=== PATIENT | male | born 1965 | race Caucasian/White ===

== ENCOUNTER 2019-10-14 10:26 | Observation (INO) ==
[2019-10-14] MEDS ORDERED: 0.9 % Sodium Chloride 1,000 ML IVC ONE (11:09)
[2019-10-14 11:38] LABS: Basophils % 0.8 %; Eosinophils # 0.1 K/mcL (0.0-0.6); Eosinophils % 2.3 %; Hematocrit 48.6 % (37.5-50.1); Hemoglobin 16.3 g/dL (12.9-16.9); Immature Granulocytes % 0.3 % (0-4); Lymphocytes # 0.9 K/mcL (0.6-4.6); Lymphocytes % 25.8 %; Mean Corpuscular HGB Conc 33.5 g/dL (31.6-35.5); Mean Corpuscular Hemoglobin 28.8 pg (28.0-33.3); Monocytes # 0.4 K/mcL (0.0-1.3); Monocytes % 11.9 %; Neutrophils # 2.1 K/mcL (1.6-8.9); Platelet Count 186 K/mcL (140-400); Red Blood Count 5.65 M/mcL (4.19-5.50); Red Cell Distribution Width 12.8 % (11.5-14.5); Segmented Neutrophils % 58.9 %; White Blood Count 3.5 K/mcL (4.3-11.1)
[2019-10-14 11:46] LABS: INR 1.2; Prothrombin Time 14.1 Seconds (9.4-12.1)
[2019-10-14 11:56] LABS: Alanine Aminotransferase 229 Units/L (7-52); Albumin 4.1 g/dL (3.5-5.7); Albumin/Globulin Ratio 1.5 (1.1-2.2); Alkaline Phosphatase 230 Units/L (34-104); Aspartate Amino Transferase 95 Units/L (13-39); BUN/Creatinine Ratio 10 (6-26); Bilirubin,Total 5.9 mg/dL (0.3-1.0); Blood Urea Nitrogen 10 mg/dL (6-20); Calcium 9.1 mg/dL (8.6-10.3); Carbon Dioxide 27 mEq/L (23-29); Chloride 104 mEq/L (98-107); Globulin 2.7 g/dL (2.4-3.5); Glucose 122 mg/dL (70-105); Osmolality,Calculated 288 (280-300); Potassium 3.9 mEq/L (3.5-5.1); Sodium 139 mEq/L (136-145); Total Protein 6.8 g/dL (6.4-8.9); eGFR For African Americans > 60 (> 60); eGFR For Non-African Americans > 60 (> 60)
[2019-10-14] MEDS ORDERED: Mag Hydrox/Al Hydrox/Simeth 30 ML UDC PO PRN (12:26)
[2019-10-14] MEDS ORDERED: Naloxone 0.4 MG/ML INJ IVP PRN ×2 (12:26)
[2019-10-14] MEDS ORDERED: MOM Conc 10 ML UD.LIQ PO PRN (12:26)
[2019-10-14] MEDS ORDERED: Ondansetron ODT 4 MG TAB.RAPDIS SL PRN (12:26)
[2019-10-14] MEDS ORDERED: *HR* Midazolam HCl 2 MG/2 ML VIAL ONE (12:30)
[2019-10-14] MEDS ORDERED: Ondansetron 4 MG/2 ML VIAL ONE (12:30)
[2019-10-14] MEDS ORDERED: *HR* FentaNYL (PF) 100 MCG/2 ML VIAL ONE (12:30)
[2019-10-14] MEDS ORDERED: Dexamethasone 4 MG/ML VIAL ONE (12:30)
[2019-10-14] MEDS ORDERED: *HR* Succinylcholine 200 MG/10 ML VIAL IVP ONE (12:30)
[2019-10-14] MEDS ORDERED: Lidocaine -MPF 2% 2 ML VIAL ONE (12:30)
[2019-10-14] MEDS ORDERED: *HR* Propofol 200 MG/20 ML VIAL IVP ONE (12:30)
[2019-10-14] MEDS ORDERED: D5% in Water 1,000 ML IVC PRN (12:30)
[2019-10-14] MEDS ORDERED: *HR* Dextrose 50 % in Water (Syg) 50 ML SYRINGE IVP PRN (12:31)
[2019-10-14] MEDS ORDERED: Dextrose Gel 15 GM/37.5 ML TUBE PO PRN ×2 (12:31)
[2019-10-14] MEDS ORDERED: Ondansetron 4 MG/2 ML VIAL IVP ONE (13:38)
[2019-10-14] MEDS ORDERED: *HR* HYDROmorphone PF 0.5 MG/0.5 ML SYRINGE IVP PRN (13:38)
[2019-10-14] MEDS ORDERED: Indomethacin 50 MG SUPP.RECT RC ONE (14:00)
[2019-10-14] MEDS ORDERED: Ringers Solution, Lactated 1,000 ML IVC SCH (14:15)
[2019-10-14] MEDS: Insulin LISPRO 300 UNITS/3 ML VIAL SQ SCH (16:35)
[2019-10-14] MEDS ORDERED: Insulin LISPRO 300 UNITS/3 ML VIAL SQ SCH ×2 (18:00→21:00)
[2019-10-15 05:03] LABS: Hematocrit 42.2 % (37.5-50.1); Hemoglobin 14.1 g/dL (12.9-16.9); Mean Corpuscular HGB Conc 33.4 g/dL (31.6-35.5); Mean Corpuscular Hemoglobin 28.4 pg (28.0-33.3); Mean Corpuscular Volume 84.9 fL (83.0-100.0); Mean Platelet Volume 10.3 fL (9.4-12.4); Platelet Count 176 K/mcL (140-400); Red Blood Count 4.97 M/mcL (4.19-5.50); Red Cell Distribution Width 12.6 % (11.5-14.5); White Blood Count 5.3 K/mcL (4.3-11.1)
[2019-10-15 05:23] LABS: Alanine Aminotransferase 158 Units/L (7-52); Albumin 3.6 g/dL (3.5-5.7); Albumin/Globulin Ratio 1.5 (1.1-2.2); Alkaline Phosphatase 205 Units/L (34-104); Aspartate Amino Transferase 52 Units/L (13-39); BUN/Creatinine Ratio 14 (6-26); Bilirubin,Total 3.1 mg/dL (0.3-1.0); Blood Urea Nitrogen 12 mg/dL (6-20); Calcium 8.9 mg/dL (8.6-10.3); Carbon Dioxide 22 mEq/L (23-29); Chloride 105 mEq/L (98-107); Globulin 2.4 g/dL (2.4-3.5); Glucose 120 mg/dL (70-105); Magnesium 1.9 mg/dL (1.6-2.6); Osmolality,Calculated 287 (280-300); Potassium 4.3 mEq/L (3.5-5.1); Sodium 138 mEq/L (136-145); eGFR For African Americans > 60 (> 60); eGFR For Non-African Americans > 60 (> 60)
[2019-10-15] MEDS ORDERED: *HR* FentaNYL (PF) 100 MCG/2 ML VIAL ONE (07:54)
[2019-10-15] MEDS ORDERED: Ondansetron 4 MG/2 ML VIAL IVP ONE (07:55)
[2019-10-15] MEDS ORDERED: *HR* Propofol 200 MG/20 ML VIAL IVP ONE (07:55)
[2019-10-15] MEDS ORDERED: *HR* OxyCODONE Immed Rel 5 MG TABLET PO PRN (07:55)
[2019-10-15] MEDS ORDERED: Morphine Sulfate 2 MG/ML SYRINGE IVP PRN (07:55)
[2019-10-15] MEDS: Insulin LISPRO 300 UNITS/3 ML VIAL SQ SCH ×2 (07:58→17:08)
[2019-10-15] MEDS ORDERED: Dexamethasone 4 MG/ML VIAL ONE (07:59)
[2019-10-15] MEDS ORDERED: *HR* Succinylcholine 200 MG/10 ML VIAL IVP ONE (07:59)
[2019-10-15] MEDS ORDERED: *HR* Rocuronium Bromide 50 MG/5 ML VIAL ONE (07:59)
[2019-10-15] MEDS ORDERED: Lidocaine -MPF 2% 2 ML VIAL ONE (07:59)
[2019-10-15] MEDS ORDERED: Ondansetron 4 MG/2 ML VIAL ONE ×2 (07:59→09:45)
[2019-10-15] MEDS ORDERED: CefOXitin 2,000 MG VIAL ONE (08:48)
[2019-10-15] MEDS ORDERED: cefOXitin 2,000 MG in Water for inj. (sterile) 20 ML IVP ONE (08:49)
[2019-10-15] MEDS ORDERED: *HR* HYDROMORPHONE 2 MG/ML VIAL ONE (09:08)
[2019-10-15] MEDS ORDERED: Ketorolac 30 MG/ML VIAL ONE (09:45)
[2019-10-15] MEDS ORDERED: Neostigmine Methylsulfate 3 MG/3 ML SYRINGE ONE (09:45)
[2019-10-15] MEDS: *HR* Promethazine 25 MG/ML VIAL IVP PRN ×2 (10:54→11:02)
[2019-10-15] MEDS ORDERED: D5% in Water 1,000 ML IVC PRN (11:33)
[2019-10-15] MEDS ORDERED: MOM Conc 10 ML UD.LIQ PO PRN (11:33)
[2019-10-15] MEDS ORDERED: Mag Hydrox/Al Hydrox/Simeth 30 ML UDC PO PRN (11:33)
[2019-10-15] MEDS ORDERED: Ondansetron ODT 4 MG TAB.RAPDIS SL PRN (11:33)
[2019-10-15] MEDS ORDERED: Dextrose Gel 15 GM/37.5 ML TUBE PO PRN ×2 (11:33)
[2019-10-15] MEDS ORDERED: *HR* Dextrose 50 % in Water (Syg) 50 ML SYRINGE IVP PRN (11:33)
[2019-10-15] MEDS: Ringers Solution, Lactated 1,000 ML IVC SCH (11:44)
[2019-10-15] MEDS: Acetaminophen 325 MG TABLET PO PRN (15:58)
[2019-10-15] MEDS ORDERED: *HR* Heparin 5,000 UNIT/ML VIAL SQ SCH (18:00)
[2019-10-15] MEDS ORDERED: Insulin LISPRO 300 UNITS/3 ML VIAL SQ SCH (21:00)
[2019-10-16 06:49] VITALS: BP 122/82
[2019-10-16] MEDS: Insulin LISPRO 300 UNITS/3 ML VIAL SQ SCH (08:01)
[2019-10-16] MEDS: Ringers Solution, Lactated 1,000 ML IVC SCH (08:02)
[2019-10-16] MEDS: Acetaminophen 325 MG TABLET PO PRN (09:54)
== END 2019-10-16 10:53 | disposition home or self-care (01) ==
LOC: EMEROOARM 10:26 → 3ANU 10:26 → SUATTDRO 12:49 → 3ANU 13:10
PROVIDERS: ADMIT Student in an Organized Health Care Education/Training Program; ATTEND Internal Medicine